=== PATIENT | male | born 1940 | race Caucasian/White ===

== ENCOUNTER 2023-11-24 16:57 | Inpatient (IN) | payer OTHER, BC ==
[2023-11-24] MEDS ORDERED: ACETAMINOPHEN INJECTION 100 ML ONE (17:30)
[2023-11-24] MEDS: SODIUM CHLORIDE 500 ML IV STA (17:35)
[2023-11-24] MEDS: ACETAMINOPHEN 1000 MG/100 ML BAG IVPB ONE (17:35)
[2023-11-24 17:48] LABS: HEMATOCRIT 45.2 % (35.4-49); HEMOGLOBIN 15.1 G/dL (11.7-16.9); MCH 30.4 pg (25.7-33.7); MCHC 33.4 g/dl (32.0-35.9); MEAN PLT VOLUME 8.7 fl (7.5-11.1); RBC 4.97 10^6/uL (4.00-5.60); WHITE BLOOD COUNT 11.5 10^3/uL (4.0-10.8)
[2023-11-24 18:00] LABS: PLATELET ESTIMATE ADEQUATE
[2023-11-24 18:06] LABS: ALBUMIN 4.2 g/dl (3.4-5.0); ALK PHOS 49 U/L (45-117); ANION GAP 12 mmol/L (4-13); BILIRUBIN,TOTAL 1.7 mg/dl (0.2-1); CALCIUM 9.3 mg/dl (8.5-10.1); CHLORIDE 98 mmol/L (98-107); CO2 26 mmol/L (21-32); CREATININE 1.7 mg/dl (0.6-1.3); GLUCOSE,RANDOM 149 mg/dl (74-106); POTASSIUM 3.7 mmol/L (3.5-5.1); SGOT/AST 22 U/L (15-37); SGPT/ALT 20 U/L (7-52); SODIUM 136 mmol/L (136-145); TOT PROT 6.9 g/dl (6.4-8.2)
[2023-11-24] MEDS ORDERED: ALBUTEROL SO4 2.5/IPRATROPIUM 0.5 INH SOL 3 ML VIAL.NEB. NEB PRN (18:23)
[2023-11-24] MEDS: ACETAMINOPHEN 325 MG TABLET (FP) PO ONE (18:24)
[2023-11-24] MEDS ORDERED: cefTRIAXone SODIUM 1 GM VIAL ONE (18:30)
[2023-11-24] MEDS: SODIUM CHLORIDE 1,000 ML IV SCH (18:37)
[2023-11-24] MEDS: CEFTRIAXONE 1,000 GM in DEXTROSE 5%-WATER - 50 ML IVPB SCH (18:38)
[2023-11-24] MEDS ORDERED: AZITHROMYCIN 500 MG VIAL IVPB ONE (18:40)
[2023-11-24 19:44] LABS: LACTIC ACID 3.4 mmol/L (0.4-2.0)
[2023-11-24] MEDS: AZITHROMYCIN IVPB 500 MG/250 ML BAG IVPB ONE (19:55)
[2023-11-24 20:43] VITALS: BMI 29.9
[2023-11-24 21:53] LABS: LACTIC ACID 2.8 mmol/L (0.4-2.0)
[2023-11-25] MEDS: ACETAMINOPHEN 325 MG TABLET (FP) PO PRN (05:39)
[2023-11-25 09:02] LABS: ALBUMIN 3.7 g/dl (3.4-5.0); BILIRUBIN,TOTAL 0.9 mg/dl (0.2-1); CALCIUM 8.4 mg/dl (8.5-10.1); CREATININE 1.7 mg/dl (0.6-1.3); POTASSIUM 3.6 mmol/L (3.5-5.1)
[2023-11-25] MEDS: ESCITALOPRAM OXALATE 10 MG TABLET PO SCH (10:17)
[2023-11-25] MEDS: ROSUVASTATIN CA 5 MG TABLET PO SCH (10:17)
[2023-11-25] MEDS: ATENOLOL 25 MG TABLET (FP) PO SCH (10:17)
[2023-11-25] MEDS: AZITHROMYCIN IVPB 500 MG/250 ML BAG IVPB SCH (10:20)
[2023-11-25] MEDS: CEFTRIAXONE 1 GM in DEXTROSE 5%-WATER - 50 ML IVPB SCH (10:24)
[2023-11-26 09:12] LABS: ALBUMIN 3.6 g/dl (3.4-5.0); BILIRUBIN,TOTAL 0.7 mg/dl (0.2-1); CALCIUM 8.2 mg/dl (8.5-10.1); CREATININE 1.6 mg/dl (0.6-1.3); MAGNESIUM 1.9 mg/dL (1.8-2.4); PHOSPHOROUS 2.4 (2.5-4.9); POTASSIUM 3.7 mmol/L (3.5-5.1); TOT PROT 5.9 g/dl (6.4-8.2)
[2023-11-26 09:52] LABS: BASO % 0.6 % (0-2.0); EOS % 2.2 % (0-4.5); HEMATOCRIT 35.9 % (35.4-49); HEMOGLOBIN 12.3 GM/dL (11.7-16.9); LYMPH % 9.5 % (8-40); MCH 30.5 pg (25.7-33.7); MCHC 34.2 g/dl (32.0-35.9); MEAN PLT VOLUME 8.1 fl (7.5-11.1); MONO % 11.2 % (3.8-10.2); NEUT % 76.5 % (42.8-82.8); PLATELET COUNT 116 10^3/uL (134-434); RBC 4.04 M/mm3 (4.00-5.60)
[2023-11-26] MEDS: ENOXAPARIN NA (PORCINE) 40 MG/0.4 ML DISP.SYRIN SQ SCH (10:02)
[2023-11-26] MEDS: methylPREDNISolone NA SUCC 40 MG/1 ML VIAL IVPUSH SCH (14:05)
[2023-11-26] MEDS: ALBUTEROL SO4 2.5/IPRATROPIUM 0.5 INH SOL 3 ML VIAL.NEB. NEB SCH (17:05)
[2023-11-26] MEDS: NAPH,MB-DB/K PH,MBDB POWDER PACKET PO SCH (17:06)
[2023-11-26] MEDS: SODIUM CHLORIDE 0.45% 1,000 ML IV SCH (17:06)
[2023-11-26] MEDS: PIPERACILLIN/TAZOB 3.375 GM 3.375 GM in DEXTROSE 5%-WATER - 50 ML IVPB SCH (19:37)
[2023-11-26] MEDS: BUDESONIDE/FORMETEROL FUMARATE 160/4.5 mcg INHALER IH SCH (21:04)
[2023-11-26 22:37] VITALS: TEMP 97.5
[2023-11-27 06:30] VITALS: BP 152/61; PULSE 57; RESP 18
[2023-11-27 08:57] LABS: ALBUMIN 3.9 g/dl (3.4-5.0); BILIRUBIN,TOTAL 0.5 mg/dl (0.2-1); CALCIUM 8.5 mg/dl (8.5-10.1); CREATININE 1.4 mg/dl (0.6-1.3); POTASSIUM 4.6 mmol/L (3.5-5.1); TOT PROT 6.3 g/dl (6.4-8.2)
[2023-11-27 11:14] LABS: BASO % 0.1 % (0-2.0); HEMATOCRIT 37.7 % (35.4-49); HEMOGLOBIN 12.8 GM/dL (11.7-16.9); MCH 30.5 pg (25.7-33.7); MCHC 33.9 g/dl (32.0-35.9); MEAN CELL VOLUME 89.8 fl (80-96); MEAN PLT VOLUME 8.3 fl (7.5-11.1); MONO % 4.3 % (3.8-10.2); NEUT % 88.6 % (42.8-82.8); PLATELET COUNT 126 10^3/uL (134-434); RDW 13.7 % (11.9-15.9); WHITE BLOOD COUNT 7.3 K/mm3 (4.0-10.0)
== END 2023-11-27 13:43 | disposition home or self-care (01) | DRG 871 ==
LOC: FER 16:57 → FM/S 18:33
PROVIDERS: ADMIT Internal Medicine
DX: A41.9 Sepsis, unspecified organism (principal); J18.9 Pneumonia, unspecified organism; N39.0 Urinary tract infection, site not specified; E87.20 Acidosis, unspecified; N17.9 Acute kidney failure, unspecified; I10 Essential (primary) hypertension; E78.5 Hyperlipidemia, unspecified; I12.9 Hypertensive chronic kidney disease with stage 1 through stage 4 chronic kidney disease, or unspecified chronic kidney disease; N18.9 Chronic kidney disease, unspecified; E66.9 Obesity, unspecified; N40.1 Benign prostatic hyperplasia with lower urinary tract symptoms; N31.9 Neuromuscular dysfunction of bladder, unspecified; R33.9 Retention of urine, unspecified; B96.5 Pseudomonas (aeruginosa) (mallei) (pseudomallei) as the cause of diseases classified elsewhere; F41.9 Anxiety disorder, unspecified
CPT/HCPCS: 0241U-QW; 36415; 71045-TC-FY; 76775-TC; 76856-TC; 80053; 81003; 81015; 83605; 83735; 84100; 85025; 85027; 87040; 87070; 87086; 87186; 87205; 87635; 87899; 94640; 97116-GP; 97162-GP; 99285-25; J0131

== ENCOUNTER 2024-02-29 14:34 | Inpatient (IN) | payer OTHER, BC ==
[2024-02-29] MEDS: SODIUM CHLORIDE 0.9% 500 ML INFUS.BAG IV ONE (15:26)
[2024-02-29] MEDS: CEFTRIAXONE 1 GM in DEXTROSE 5%-WATER - 100 ML IVPB ONE (15:35)
[2024-02-29 15:59] LABS: INR 1.05 (0.83-1.09); PROTHROMBIN TIME (PATIENT) 11.9 SEC (9.7-13.0)
[2024-02-29 16:02] LABS: ACTIVATED PTT 29.1 SECONDS (25.2-36.5)
[2024-02-29 16:13] LABS: HEMATOCRIT 44.5 % (35.4-49); HEMOGLOBIN 14.8 G/dL (11.7-16.9); MCH 29.5 pg (25.7-33.7); MCHC 33.2 g/dl (32.0-35.9); MEAN CELL VOLUME 88.6 fl (80-96); MEAN PLT VOLUME 9.1 fl (7.5-11.1); RBC 5.02 10^6/uL (4.00-5.60); RDW 14.2 % (11.9-15.9); WHITE BLOOD COUNT 5.2 10^3/uL (4.0-10.8)
[2024-02-29 16:16] LABS: ALK PHOS 44 U/L (45-117); ANION GAP 6 mmol/L (4-13); BILIRUBIN,TOTAL 0.6 mg/dl (0.2-1); CALCIUM 8.7 mg/dl (8.5-10.1); CHLORIDE 103 mmol/L (98-107); CO2 31 mmol/L (21-32); CREATININE 1.5 mg/dl (0.6-1.3); GLUCOSE,RANDOM 109 mg/dl (74-106); POTASSIUM 3.6 mmol/L (3.5-5.1); SGOT/AST 37 U/L (15-37); SGPT/ALT 31 U/L (7-52); SODIUM 140 mmol/L (136-145); TOT PROT 6.1 g/dl (6.4-8.2)
[2024-02-29 17:14] LABS: PLATELET ESTIMATE ADEQUATE
[2024-02-29 23:04] VITALS: BMI 28.7
[2024-03-01] MEDS: DEXAMETHASONE SOD PHOSPHATE 10 MG/1 ML VIAL IVPUSH SCH (01:02)
[2024-03-01] MEDS: HEPARIN NA (PORCINE) 5,000 UNITS/ML 1ML VIAL SQ SCH (01:02)
[2024-03-01] MEDS: REMDESIVIR 200 MG in SODIUM CHLORIDE 250 ML IVPB ONE (02:17)
[2024-03-01 08:19] LABS: HEMATOCRIT 43.6 % (35.4-49); HEMOGLOBIN 14.6 GM/dL (11.7-16.9); MCH 29.2 pg (25.7-33.7); MCHC 33.4 g/dl (32.0-35.9); MEAN CELL VOLUME 87.6 fl (80-96); MEAN PLT VOLUME 7.7 fl (7.5-11.1); PLATELET COUNT 127 10^3/uL (134-434); RBC 4.98 M/mm3 (4.00-5.60); RDW 13.7 % (11.9-15.9); WHITE BLOOD COUNT 3.5 K/mm3 (4.0-10.0)
[2024-03-01 08:35] LABS: POTASSIUM 4.2 mmol/L (3.5-5.1)
[2024-03-01 08:43] LABS: CALCIUM 8.4 mg/dL (8.5-10.1)
[2024-03-01 08:44] LABS: BLOOD UREA NITROGEN 13.2 mg/dL (7-18); MAGNESIUM 2.1 mg/dL (1.8-2.4)
[2024-03-01 08:48] LABS: CREATININE 1.2 mg/dL (0.55-1.3)
[2024-03-01 08:49] LABS: PHOSPHOROUS 2.2 mg/dL (2.5-4.9)
[2024-03-01] MEDS: ESCITALOPRAM OXALATE 10 MG TABLET PO SCH (10:15)
[2024-03-01] MEDS: FLUTICASONE/UMECLIDIN/VILANTER(200-62.5-25 TRELEGY ELLIPTA) INAHLER IH SCH (10:16)
[2024-03-01] MEDS: amLODIPine BESYLATE 10 MG TABLET (FP) PO SCH (10:16)
[2024-03-01] MEDS: LOSARTAN 50MG/HCTZ 12.5MG 1 TAB PO SCH (10:19)
[2024-03-01] MEDS: PATIENT'S OWN MEDICATION (NON-FORMULARY) (Azelastine Hcl [Azelastine Hcl] 137 MCG/0.137 ML IH SCH (14:11)
[2024-03-01] MEDS: TAMSULOSIN HCL 0.4 MG CAP PO SCH (21:26)
[2024-03-02 08:05] LABS: BASO % 0.1 % (0-2.0); HEMATOCRIT 41.5 % (35.4-49); HEMOGLOBIN 13.8 GM/dL (11.7-16.9); LYMPH % 10.2 % (8-40); MCH 29.1 pg (25.7-33.7); MCHC 33.2 g/dl (32.0-35.9); MEAN CELL VOLUME 87.7 fl (80-96); MEAN PLT VOLUME 7.7 fl (7.5-11.1); MONO % 5.7 % (3.8-10.2); PLATELET COUNT 143 10^3/uL (134-434); RBC 4.74 M/mm3 (4.00-5.60); RDW 13.7 % (11.9-15.9); WHITE BLOOD COUNT 6.5 K/mm3 (4.0-10.0)
[2024-03-02 08:15] LABS: ALBUMIN 3.5 g/dl (3.4-5.0); BLOOD UREA NITROGEN 22.8 mg/dL (7-18); CALCIUM 8.6 mg/dL (8.5-10.1)
[2024-03-02 08:18] LABS: CREATININE 1.3 mg/dL (0.55-1.3)
[2024-03-02 08:20] LABS: BILIRUBIN,TOTAL 0.4 mg/dL (0.2-1); TOT PROT 6.3 g/dl (6.4-8.2)
[2024-03-02 09:21] LABS: ERYTHROCYTE SEDIMENTATION RATE 5 mm/hr (0-20)
[2024-03-02] MEDS: REMDESIVIR 100 MG in SODIUM CHLORIDE 250 ML IVPB SCH (10:15)
[2024-03-03 08:54] LABS: POTASSIUM 3.9 mmol/L (3.5-5.1)
[2024-03-03 08:58] LABS: CALCIUM 8.9 mg/dL (8.5-10.1)
[2024-03-03 08:59] LABS: BLOOD UREA NITROGEN 29.7 mg/dL (7-18)
[2024-03-03 09:02] LABS: CREATININE 1.7 mg/dL (0.55-1.3)
[2024-03-03] MEDS: LACTATED RINGERS SOLUTION 1,000 ML/1,000 ML INFUS.BAG IV SCH (15:26)
[2024-03-04 08:24] LABS: POTASSIUM 3.6 mmol/L (3.5-5.1)
[2024-03-04 08:35] LABS: CALCIUM 8.5 mg/dL (8.5-10.1)
[2024-03-04 08:36] LABS: BLOOD UREA NITROGEN 26.2 mg/dL (7-18)
[2024-03-04 08:38] LABS: CREATININE 1.3 mg/dL (0.55-1.3)
[2024-03-04 13:10] VITALS: BP 127/91; PULSE 65; RESP 17; TEMP 97.5
== END 2024-03-04 13:15 | disposition home or self-care (01) | DRG 178 ==
LOC: FER 14:34 → J4S 22:27 → UNDOADMOB 22:27 → INTOOBSV 22:27 → J4S 23:40 → OBSVTOIN 03-01 11:39
PROVIDERS: ADMIT Internal Medicine; ATTEND Internal Medicine
PROC: XW033E5 Introduction of Remdesivir Anti-infective into Peripheral Vein, Percutaneous Approach, New Technology Group 5 (ICD-10-PCS; principal; 2024-02-29)
DX: U07.1 COVID-19 (principal); I24.89 Other forms of acute ischemic heart disease; J90 Pleural effusion, not elsewhere classified; J98.11 Atelectasis; N17.9 Acute kidney failure, unspecified; I12.9 Hypertensive chronic kidney disease with stage 1 through stage 4 chronic kidney disease, or unspecified chronic kidney disease; D69.6 Thrombocytopenia, unspecified; N18.9 Chronic kidney disease, unspecified; E78.5 Hyperlipidemia, unspecified; N40.0 Benign prostatic hyperplasia without lower urinary tract symptoms
CPT/HCPCS: 0241U-QW; 36415; 71046-TC-FY; 80048; 80053; 80061; 81003; 83605; 83735; 84100; 84443; 84484; 85025; 85027; 85610; 85651; 85730; 86140; 87040; 87651; 93005; 93306-TC; 97116-GP; 97161-GP; 99285-25; G0378; J0248; J1100; J1644